=== PATIENT | male | born 1950 | race Caucasian/White ===

== ENCOUNTER 2022-01-30 13:32 | Emergency (ER) | payer MEDICARE, OTHER, SELFPAY ==
[2022-01-30 13:58] VITALS: BP 145/95; PULSE 82; RESP 18; TEMP 36.9; O2SAT 96
--- NOTE | 2022-01-30 15:08 | ED.URI ---
HPI - URI/Sore Throat General Chief Complaint: Upper Respiratory Infection Stated Complaint: Cough/Congestion Time Seen by Provider: 01/30/22 15:00 Source: patient and RN notes reviewed Mode of arrival: ambulatory Limitations: no limitations History of Present Illness HPI Narrative: 71-year-old male presents with concern for nasal congestion, rhinorrhea, sore throat, cough that started on Saturday. He has been taking [id number] medications occasional relief of symptoms. MD elicited complaint: sore throat and nasal congestion Related Data Home Medications Medication Instructions Recorded Confirmed fluoxetine 20 mg capsule 20 mg DAILY 01/30/22 01/30/22 lisinopril 10 mg tablet 10 mg DAILY 01/30/22 01/30/22 meloxicam 15 mg tablet 15 mg DAILY 01/30/22 01/30/22 pantoprazole 40 mg tablet,delayed 40 mg PO DAILY 01/30/22 01/30/22 release tamsulosin 0.4 mg capsule 0.4 mg PO DAILY 01/30/22 01/30/22 Allergies Allergy/AdvReac Type Severity Reaction Status Date / Time No Known Allergies Allergy Verified 01/30/22 14:03 Review of Systems Review of Systems: CONSTITUTIONAL: Reports malaise. Denies chills, sweats, or fever. EYES: Denies visual changes, redness, or discharge. ENT: Reports rhinorrhea, congestion, and sore throat. CARDIOVASCULAR: Denies chest pain, palpitations, or edema. RESPIRATORY: Reports cough. Denies dyspnea. GASTROINTESTINAL: Denies abdominal pain, nausea, vomiting, diarrhea SKIN: Denies rash or itching. MUSCULOSKELETAL: Denies myalgia. NEUROLOGIC: Denies headache. All systems reviewed & are unremarkable except as noted in HPI and below PMFSH Comments At time of signature, agree with nursing past medical, surgical, social and family history. There is no relevant family history pertinent to the presenting complaint Exam Narrative: GENERAL: Well-appearing, well-nourished, and in no acute distress. HEAD: Normocephalic EYES: PERRLA, conjunctivae clear ENT: Nares clear, turbinates edematous and erythematous, clear discharge. Mucous membranes moist. TM pearly kaur with dull light reflex bilaterally; no tragal tenderness. Oropharynx not erythematous without lesions. Tonsils not enlarged and without exudate, no drooling, no hoarseness, no trismus, uvula midline. NECK: Supple. No lymphadenopathy CHEST: Clear to auscultation, breath sounds equal. No wheezing, rhonchi, rales, or stridor. No respiratory distress, speaks in full sentences. HEART: Regular rate and rhythm. No murmur heard. SKIN: Warm, dry, no rash. NEURO: Alert and oriented x3. PSYCH: Normal mood and affect Course Course Emergency Course: Patient is aware of diagnosis, understands and agrees to treatment plan. Anticipatory guidance given. Patient agrees to follow-up as directed and is aware of reasons to seek care at the emergency department. Portions of this record may have been created with voice recognition software Level of Care: Express Care Visit Vital Signs Vital signs: Vital Signs Temperature 98.4 F 01/30/22 13:58 Pulse Rate 82 01/30/22 13:58 Respiratory Rate 18 01/30/22 13:58 Blood Pressure 145/95 H 01/30/22 13:58 Pulse Oximetry 96 01/30/22 13:58 Oxygen Delivery Room Air 01/30/22 13:58 Temperature 98.4 F 01/30/22 13:58 Pulse Rate 82 01/30/22 13:58 Respiratory Rate 18 01/30/22 13:58 Blood Pressure 145/95 H 01/30/22 13:58 Pulse Oximetry 96 01/30/22 13:58 Oxygen Delivery Room Air 01/30/22 13:58 Reviewed. MDM - URI/Sore Throat MDM Narrative Medical decision making narrative: Differential diagnosis considered: Gonsalves virus, strep pharyngitis, allergic rhinitis, upper respiratory tract infection, sinusitis, rhinosinusitis, nasopharyngitis. viral pharyngitis, otitis media, otitis externa, pneumonia, bronchitis, viral cough syndrome, viral syndrome, and influenza. Exam findings show no acute concerns or changes; patient is non-toxic appearing and is in no distress. Patient is appropriate for
== END 2022-01-30 15:19 | disposition home or self-care (01) ==
PROVIDERS: Emergency Provider Nurse Practitioner; PCP Internal Medicine
DX: U07.1 COVID-19 (principal)
CPT/HCPCS: 87426; 99213; C9803; G0463

== ENCOUNTER 2024-01-07 10:39 | Emergency (ER) | payer MEDICARE, OTHER, SELFPAY ==
[2024-01-07 10:45] VITALS: BP 157/98; PULSE 87; RESP 20; TEMP 36.7; O2SAT 98
--- NOTE | 2024-01-07 11:25 | ED_ITS ---
HPI - URI/Sore Throat General Chief Complaint: Upper Respiratory Infection Stated Complaint: Congestion Time Seen by Provider: 01/07/24 11:25 Source: patient, RN notes reviewed and old records reviewed Mode of arrival: ambulatory Limitations: no limitations History of Present Illness HPI Narrative: 73-year-old male to Express Care with complaint of runny nose, scratchy throat, postnasal drainage, bilateral ear fullness for 5 days. The patient states that he had amoxicillin at home that he took yesterday and this morning. Patient denies pain, fever. Patient reports history of emphysema, states he last used his inhaler this morning. Patient denies difficulty swallowing, shortness of breath, chest pain, allergies, fever. Patient able tolerate fluids by mouth. Patient resting comfortably in exam room in no acute distress. Respirations even and nonlabored. Patient able to speak in complete sentences without difficulty. Related Data Home Medications Medication Instructions Recorded Confirmed fluoxetine 20 mg capsule 20 mg DAILY 01/30/22 01/07/24 lisinopril 10 mg tablet 10 mg DAILY 01/30/22 01/07/24 meloxicam 15 mg tablet 15 mg DAILY 01/30/22 01/07/24 pantoprazole 40 mg tablet,delayed 40 mg PO DAILY 01/30/22 01/07/24 release tamsulosin 0.4 mg capsule 0.4 mg PO DAILY 01/30/22 01/07/24 umeclidinium 62.5 mcg-vilanterol inhalation 01/07/24 01/07/24 25 mcg/actuation powdr for inhalation (Anoro Ellipta) Allergies Allergy/AdvReac Type Severity Reaction Status Date / Time No Known Allergies Allergy Verified 01/07/24 10:55 Review of Systems Review of Systems: All systems reviewed & are unremarkable except as noted in HPI and below Constitutional: Constitutional: Reports no additional constitutional complaints Eyes: Eyes: Reports no additional eye complaints ENT: Reports as per HPI, Reports otalgia, Reports nasal discharge, Reports post nasal drip and Reports sore throat Cardiovascular: Cardiovascular: Reports no additional cardiovascular complaints, Denies chest pain and Denies dyspnea Respiratory: Respiratory: Reports no additional respiratory complaints, Denies cough and Denies dyspnea Musculoskeletal: Musculoskeletal: Reports no additional musculoskeletal complaints Neurologic: Reports system reviewed and no additional complaints, except as documented Psychiatric: Psychiatric: Reports no additional psychiatric complaints PMFSH Comments At the time of my signature, I reviewed and agree with the nursing past medical, surgical, social, and family history. There is no relevant family history pertinent to the patient complaint. Exam Const: General: cooperative, no acute distress, alert, tired appearing and well nourished Nutritional Appearance: well nourished Orientation/consciousness: patient oriented x3 Limitations: no limitations HENMT: Head: normal to inspection Ears: external ears normal and TM abnormal erythematous bilateral, with fluid behind the TM bilateral and with loss of landmarks on the right Face/Nose/Sinus: Normal external nose present, Normal nares present, normal facial exam, No erythema and No edema Face and sinus: normal facial exam, no erythema and no edema Mouth: Yes Normal oral and palatal mucosa present Throat: posterior oropharynx abnormal erythema and postnasal drainage Eyes: General: appearance normal, both eyes and all related structures Neck: Neck: normal visual inspection, full ROM and no meningeal signs Lymphatic: no lymphadenopathy noted and no lymphedema noted Chest: Chest palpation & inspection: normal inspection of the chest Resp: Effort & Inspection: normal respiratory effort and able to speak in complete sentences Auscultation: clear to auscultation bilaterally Cardio: Jugular venous distension: no JVD Rate: regular rate Rhythm: regular rhythm Back/Spine/Pelvis: Cervical Spine: cervical ROM normal Skin: General skin exam: normal color, no rashes or lesions noted and turgor normal Neuro: General: patient oriented x3, gait normal, moves all extremities and no meningeal signs Speech: normal speech Gait exam (Neuro): Normal gait present Extrem: General: normal to inspection, full ROM and capillary refill normal Psych: Appearance: grossly normal and well kempt Course Course Emergency Course: Some parts of this dictation were generated by voice recognition software and may contain typographical and/or grammatical inaccuracies. Level of Care: Express Care Visit Vital Signs Vital signs: Vital Signs Temperature 36.7 C 01/07/24 10:45 Pulse Rate 87 01/07/24 10:45 Respiratory Rate 20 01/07/24 10:45 Blood Pressure 157/98 H 01/07/24 10:45 Pulse Oximetry 98 01/07/24 10:45 Temperature 36.7 C 01/07/24 10:45 Pulse Rate 87 01/07/24 10:45 Respiratory Rate 20 01/07/24 10:45 Blood Pressure 157/98 H 01/07/24 10:45 Pulse Oximetry 98 01/07/24 10:45 reviewed MDM - URI/Sore Throat MDM Narrative Medical decision making narrative: 73-year-old male to Express Care with complaint of runny nose, scratchy throat, postnasal drainage, bilateral ear fullness for 5 days. The patient states that he had amoxicillin at home that he took yesterday and this morning. Patient denies pain, fever. Patient reports history of emphysema, states he last used his inhaler this morning. Patient denies difficulty swallowing, shortness of breath, chest pain, allergies, fever. Patient able tolerate fluids by mouth. Patient resting comfortably in exam room in no acute distress. Respirations even and nonlabored. Patient able to speak in complete sentences without difficulty. on exam, bilateral TMs erythematous with fluid. Right TM with loss of landmarks. Posterior oropharynx erythematous with postnasal drainage. Findings consistent with right otitis media. Patient is sitting comfortably in exam room nontoxic in appearance. Patient appropriate for outpatient treatment and follow-up. Discharge instructions reviewed with patient, as well as provided in writing per nursing staff. The instructions also include specific and strict return/GO TO THE ER as well as f/u information. All questions have been answered, and the patient deny any further questions with discharge and discharge plan. Some parts of this dictation were generated by voice recognition software and may contain typographical and/or grammatical inaccuracies. Differential Diagnosis Differential diagnosis: Likely upper respiratory infection, croup, otitis media, sinusitis, viral infection, bronchitis, influenza and pharyngitis Discharge Plan Discharge Clinical Impression: Acute right otitis media Patient Disposition: Home, Self-Care Condition: Stable Instructions: Ear Infection (ED) Additional Instructions: -Alternate Tylenol and Motrin per package directions for fever or pain. -Antihistamine medication such as Benadryl at night and Zyrtec/Claritin/Dot during the day can help improve symptoms. -Use Flonase twice a day for 5 days then daily to help reduce the inflammation and dry up your sinuses. -You can also use Sudafed or Mucinex. Be sure to drink plenty of water with these medications at least 8 ounces with every dose and it is important to drink 8 to 10 glasses of water per day. Water is a natural decongestant -Eat and drink things that are easy to swallow, like tea or soup, or popsicles. -Oral rinses such as: Salt water gargles and/or may use topical anesthetic (eg. Chloraseptic spray) or lozenges to relieve dryness or throat pain). -Frequent hand washing or hand crew boat operator is one of the best ways to prevent spread of infection. -Using a vaporizer or humidifier at night will also help thin secretions and help with coughing up phlegm. -Follow up with primary care provider in 2-3 days if condition is not improving; or seek ER visit if you have trouble breathing, cannot drink enough fluids, have muffled voice, difficulty opening your mouth, or severe swelling. your blood pressure today is 157/98. It important you follow-up with your primary care provider regarding your blood pressure Prescriptions: New amoxicillin 875 mg tablet 875 mg PO Q12H 7 Days Qty: 15 0RF Rx Instructions: take one tablet tonight. Start taking BID tomorrow. No Action meloxicam 15 mg tablet 15 mg DAILY tamsulosin 0.4 mg capsule 0.4 mg PO DAILY pantoprazole 40 mg tablet,delayed release (DR/EC) 40 mg PO DAILY lisinopril 10 mg tablet 10 mg DAILY fluoxetine 20 mg capsule 20 mg DAILY Lagevrio (EUA) 200 mg capsule 800 mg PO Q12H 5 Days Qty: 40 0RF Anoro Ellipta 62.5-25 mcg/actuation blister with device INHALATION Rx Instructions: as prescribed Follow-up/Referrals: Johanny,Aric Hatch MD [Primary Care Provider] -
== END 2024-01-07 11:40 | disposition home or self-care (01) ==
PROVIDERS: Emergency Provider Nurse Practitioner Family; PCP Internal Medicine
DX: H66.91 Otitis media, unspecified, right ear (principal); J43.9 Emphysema, unspecified; E78.00 Pure hypercholesterolemia, unspecified; I10 Essential (primary) hypertension; Z96.653 Presence of artificial knee joint, bilateral
CPT/HCPCS: 99213; G0463